=== PATIENT | male | born 1975 | race Caucasian/White ===

== ENCOUNTER 2017-05-10 06:02 | Emergency (ER) | payer BC ==
[~2017-05-10] VITALS: Ht 165.1 cm; Wt 118.2 kg
[~2017-05-10 06:02] MED LIST: ASPI-664 PO; CEPH-443 PO; GLIP-95 PO; HYDR-762 PO; HYDR-906 PO; IBUP800T25 PO; LEVO175T38 PO; LISI-313 PO; METF500T4 PO; ONDA4TAB35 PO; SIMV10TA PO; SULF1TAB31 PO
[2017-05-10 06:09] VITALS: Ht 165.1 cm; Wt 118.2 kg
--- NOTE | 2017-05-10 06:57 | ERD ---
ER Documentation Chief Complaint Date/Time DATE: 05/10/17 TIME: 06:55 Chief Complaint ABSCESS TO LT GROIN X 2 DAYS. DENIES FEVER HPI 42-year-old male presents emergency department for abscess at the bottom of my testicles/groin area for 2 days. Also complains of testicular pain. No painful urination. Denies headache, loss of consciousness, dizziness, blurry vision, changes in vision, photophobia, facial pain, ear pain, throat pain, difficulty swallowing, neck pain, shoulder pain, chest pain, cough, hemoptysis, abdominal pain, back pain, loss of appetite, nausea, vomiting, hematochezia, diarrhea, constipation, urinary symptoms, bladder and bowel incontinences, extremity weakness, extremity tenderness, numbness or tingling sensation, difficulty walking, recent travel, recent exposure to illness, recent antibiotic use in the last 3 months, fever, chills. Past medical history of diabetes, hypertension, hypothyroidism. No surgical history. Medication: Metformin, glipizide, aspirin, levothyroxine. Social: nutrition worker. Denies smoking, use of alcohol, use of illegal drugs. ROS All systems reviewed and are negative except as per history of present illness. Medications Home Meds Active Scripts Ibuprofen* (Motrin*) 800 Mg Tab, 800 MG PO Q8 Y for PAIN AND OR ELEVATED TEMP, # 30 TAB Prov:PASILABANZACKAR F 05/10/17 Hydrocodone/Acetaminophen ([place] 5-325 Tablet) 1 Each Tablet, 1 TAB PO Q6H Y for PAIN, #15 TAB Prov:PASILABAN,ZACKAR F 05/10/17 Cephalexin* (Keflex*) 500 Mg Capsule, 500 MG PO QID for 5 Days, CAP Prov:PASILABAN,ZACKAR F 05/10/17 Sulfamethoxazole/Trimethoprim* (Bactrim Ds* Tablet) 1 Each Tablet, 1 TAB PO BID for 7 Days, #14 TAB Prov:PASILABAN,ZACKAR F 05/10/17 Hydrocodone/Acetaminophen ([place] 5-325 Tablet) 1 Each Tablet, 1 TAB PO Q6H Y for PAIN, #7 TAB Prov:LIZETH LIZARRAGA PA-C 04/20/17 Cephalexin* (Keflex*) 500 Mg Capsule, 500 MG PO QID for 5 Days, CAP Prov:LIZETH LIZARRAGA PA-C 04/20/17 Sulfamethoxazole/Trimethoprim* (Bactrim Ds* Tablet) 1 Each Tablet, 1 TAB PO BID , #14 TAB Prov:LIZETH LIZARRAGA PA-C 04/20/17 Hydrocodone/Acetaminophen ([place] 5-325 Tablet) 1 Each Tablet, 1 TAB PO Q6H Y for PAIN, #12 TAB Prov:HAN KAPADIA PA-C 10/23/16 Ibuprofen* (Motrin*) 800 Mg Tab, 800 MG PO Q6H Y for PAIN AND OR ELEVATED TEMP, #30 TAB Prov:FABIANA MONTIEL MD 03/20/16 Ondansetron Hcl* (Zofran* ODT) 4 mg -ODT Tab.disper, 4 MG PO Q6 Y for NAUSEA AND /OR VOMITING, #30 TAB Prov:FABIANA MONTIEL MD 03/20/16 Hydrocodone Bit-Acetaminophen* ([place]*) 10-325 Mg Tablet, 1 TAB PO Q6 Y for PAIN , #12 TAB Prov:FABIANA MONTIEL MD 03/20/16 Reported Medications Simvastatin* (Zocor*) 10 Mg Tablet, 10 MG PO QHS, #30 TAB 03/20/16 Lisinopril* (Lisinopril*) 5 Mg Tablet, 5 MG PO DAILY, #30 TAB 03/20/16 Glipizide* (Glipizide*) 10 Mg Tablet, 10 MG PO AC MEALS, TAB 03/20/16 Aspirin (Low Dose Aspirin) 81 Mg Tablet.dr, 81 MG PO DAILY, #30 TAB 03/20/16 Levothyroxine Sodium* (Levoxyl*) 175 Mcg Tablet, 175 MCG PO BEFORE BREAKFAST, # 30 TAB 03/20/16 Metformin Hcl* (Metformin Hcl*) 500 Mg Tablet, 500 MG PO WITH BREAKFAST Y for BID, TAB 09/19/15 Allergies Allergies: Coded Allergies: No Known Allergy (Unverified , 05/10/17) PMhx/Soc History of Surgery: No Anesthesia Reaction: No Hx Neurological Disorder: No Hx Respiratory Disorders: No Hx Cardiac Disorders: No Hx Psychiatric Problems: No Hx Miscellaneous Medical Probl: Yes (dm, hypothyroid) Hx Alcohol Use: Yes (occasional) Hx Substance Use: No Hx Tobacco Use: No Smoking Status: Never smoker Physical Exam Vitals Vital Signs Date Time Temp Pulse Resp B/P Pulse Ox O2 Delivery O2 Flow Rate FiO2 05/10/17 06:09 97.0 101 22 137/86 95 Physical Exam CONSTITUTIONAL: Well-appearing; well-nourished; in no apparent distress. HEAD: Normocephalic; atraumatic. EYES: Conjunctiva clear, sclera non-icteric, EOM intact. PERRL Ears: Hearing intact. EACs clear, TMs non-bulging, non-inflamed, translucent & mobile, ossicles normal appearance, No obstructions, no erythema, no discharges Nose: No obstructions. No polyps. No external lesions. Mucosa non-inflamed. No external lesions, septum and turbinates normal. No rhinorrhea. No discharges. Frontal sinus is non-tender to palpation. Maxillary sinus is non-tender to palpation. MOUTH: Moist mucous membranes, no lesion, no obstructions, no vesicles, no thrush, patent airway Throat: Uvula in midline. Right tonsil is +1 with no erythema, no exudate. Left tonsil is +1 with no erythema, no exudate. Tolerating secretions well. Good gag reflex. Patent airway. Neck: Supple, without lesions, bruits, or adenopathy. No mass. Thyroid non- enlarged and non-tender to palpation. CHEST: Symmetrical chest. Respirations even and not labored. No retractions noted. CARDIOVASCULAR: Normal S1, S2. RRR. No murmurs, gallops. RESPIRATORY: Normal chest excursion with respiration; breath sounds clear and equal bilaterally; no wheezes, rhonchi, or rales. Breathing even and unlabored. Speaking in clear, full, and complete sentences w/ ease. ABDOMEN: Normal bowel sounds normal. Soft, round, non-distended, non-guarding, no tenderness, no rebound, no organomegaly, no masses, no pulsating abdominal mass. No hernia. No peritoneal signs. : No CVA tenderness. External genital area is no lesions, rashes, hives, vesicular lesions with normal hair growth. Bilateral testicular area has no obvious discoloration/swelling. Inferior part of his testicle has mild swelling measuring about 2 x 2 centimeter in diameter. No induration. BACK: Symmetrical shoulder. Spine is midline without deformity, tenderness. No evidence of trauma or deformity. PELVIS: Stable pelvis. No evidence of trauma or deformity. MUSCULOSKELETAL: Normal gait and station. No misalignment, asymmetry, crepitation, defects, tenderness, masses, effusions, decreased range of motion, instability, atrophy or abnormal strength or tone in the head, neck, spine, ribs , pelvis or extremities. No calf tenderness. NEUROVASCULAR: Distal pulses are present. Pedal pulse are present, equal, and normal. Capillary refills are < 2 seconds. NEUROLOGIC: Alert and oriented x4. Speaks full and clear sentences. Cranial Nerves II-XII normal. Sensation to pain, touch, and proprioception normal. Grossly unremarkable. No neurologic deficits. Romberg test is negative. PSYCHOLOGICAL: The patients mood and manner are appropriate. No hallucinations , delusions. Not SI. Not HI. Has the capacity to decide for self SKIN: Normal for age and ethnicity; warm; dry; good turgor; no apparent lesions or exudates. No rashes, hives, discoloration. Intact. Results 24 hrs Laboratory Tests Test 05/10/17 08:46 Urine Color STRAW Urine Clarity CLEAR Urine pH 6.0 Urine Specific [place] 1.031 Urine Ketones 1+mg/dL Urine Nitrite NEGATIVEmg/dL Urine Bilirubin NEGATIVEmg/dL Urine Urobilinogen NEGATIVEmg/dL Urine Leukocyte Esterase NEGATIVELeu/ul Urine Hemoglobin NEGATIVEmg/dL Urine Glucose 3+mg/dL Urine Total Protein NEGATIVEmg/dl Current Medications Medications (Trade) Dose Ordered Sig/Deep Route PRN Reason Start Time Stop Time Status Last Admin Dose Admin Ceftriaxone Sodium (Rocephin) 1 gm ONCE ONCE IM 05/10/17 07:00 05/10/17 07:01 DC 05/10/17 07:12 Acetaminophen/ Hydrocodone Bitart ([place] (10/325)) 1 tab ONCE ONCE PO 05/10/17 07:00 05/10/17 07:01 DC 05/10/17 07:12 Procedures/MDM Examination: Please see physical examination. Disease process, medical treatment was explained to the patient and family member. They verbalized understanding and agreed with the diagnostic tests, medical treatment, and follow-up care. Radiology: Testicular ultrasound Impression: Small bilateral hydroceles. 0.3 cm left epididymal cyst. A small left varicocele is present. Normal vascular flow to both testes and epididymides. Treatment: Ceftriaxone IM. [place]. Motrin. Re-evaluation: Denies headache, dizziness, blurry vision, neck pain, shoulder pain, chest pain, back pain, abdominal pain, nausea, vomiting. No episode of emesis in the emergency department. Alert and oriented 4. Speaks full and clear sentences. Respirations even and unlabored. Lung sounds clear to auscultation. Active bowel sounds. There is no right upper/right lower/ epigastric/left upper/left lower abdominal tenderness and light and deep palpation. Negative on Rovsings sign. Negative Hunt sign. Able to jump 5 times without developing right-sided abdominal pain. No peritoneal signs. Alert and oriented 4. Speaks full and clear sentences. Respirations even and unlabored. Lung sounds clear to auscultation. Ambulatory with steady gait. No neurovascular deficits. No neurological deficits. Consultation: None. Differential diagnosis: Testicular torsion versus epididymal cysts versus epididymitis Medical decision makin-year-old male presents emergency department for abscess at the bottom of my testicles/groin area for 2 days. Also complains of testicular pain. No painful urination. Patient's complaint, patient's history about his complaint, my physical findings, diagnostic test results, my reevaluation are consistent my final diagnosis of epididymitis. Patient stated that he wants to go home and follow-up with his primary care physician in the next 24-48 hours. Hemodynamically stable on discharge. Medications prescribed are the following: Bactrim. Keflex. [place]. Patient and family member are made aware of the side effects and adverse reactions of the medications prescribed. Instructed on when to seek emergent and medical attention in case allergic/anaphylactic reactions or severe side effects and or adverse reactions to medications. Patient and family member verbalized understanding. Patient instructed Instructed to follow-up with his PCP in 24-48 hours. Stated that he will make sure to see a primary care physician the next 24 hours. Instructed to Call 911 for chest pain, shortness of breath. Advised to come back here in ED as soon as possible for severity of symptoms which includes but not limited to: any new symptoms; shortness of breath/difficulty of breathing; cardiovascular changes; severe gastrointestinal symptoms; signs and symptoms of bleeding and or infection; signs of compartment syndrome/neurovascular changes; neurological changes/deficits. Patient and family member verbalized understanding. Upon discharge, patient is alert and oriented x 4, speaks full and clear sentences, denies pain, has no neurological deficits, has no neurovascular deficits, difficulty of breathing. Breathing even and unlabored. Lung sounds are clear to auscultation. Not in distress. Appears comfortable. Ambulatory with steady gait. Appears satisfied with care provided here in ED. Departure Diagnosis: Primary Impression: Epididymal cyst Additional Impression: Epididymal pain Condition: Good Additional Instructions: Instructed to follow-up with his PCP in 24-48 hours. Stated that he will make sure to see a primary care physician the next 24 hours. Instructed to Call 911 for chest pain, shortness of breath. Advised to come back here in ED as soon as possible for severity of symptoms which includes but not limited to: any new symptoms; shortness of breath/difficulty of breathing; cardiovascular changes; severe gastrointestinal symptoms; signs and symptoms of bleeding and or infection; signs of compartment syndrome/neurovascular changes; neurological changes/deficits. Patient and family member verbalized understanding. JOSSUE GUPTA May 10, 2017 06:57
[2017-05-10] MEDS ORDERED: CEFTRIAXONE 1 GM INJ IM ONE (07:00)
[2017-05-10] MEDS ORDERED: HYDROCODONE/APAP (10/325) TAB PO ONE (07:00)
--- NOTE | 2017-05-10 08:29 | RADRPT ---
PROCEDURE: US Scrotum. CLINICAL INDICATION: scrotal pain TECHNIQUE: Multiple sonographic images of the scrotal region were obtained utilizing a linear arra y transducer with grayscale and color-flow and a Doppler imaging. The images were reviewed on a high -resolution PACS workstation. COMPARISON: No prior studies are available for comparison. FINDINGS: The right testicle is well visualized and has a normal echotexture. No focal areas of abnormal echog enicity are visualized. The right testicle measures 5.1 x 2.3 x 2.8 cm. There is normal color-flow. The right epididymis is visualized and unremarkable in appearance. There is normal color-flow. The left testicle is well visualized and has a normal echotexture. No focal areas abnormal echogenic ity are visualized. The left testicle measures 4.6 x 2.1 x 3.2 cm. There is normal color-flow. A lef t epididymal cyst is present measuring 0.3 cm in diameter. Small bilateral hydroceles are present. There is a mild left varicocele. IMPRESSION: 1. Small bilateral hydroceles. 2. 0.3 cm left epididymal cyst. 3. A small left varicocele is present. 4. Normal vascular flow to both testes and epididymi. RPTAT:AAJJ Physician Cain Date Time Electronically viewed and signed by Physician Cain on 05/10/2017 08:29 /
[2017-05-10] MEDS ORDERED: CEPH-443 PO (08:43)
[2017-05-10] MEDS ORDERED: SULF1TAB31 PO (08:43)
[2017-05-10] MEDS ORDERED: IBUP800T25 PO (08:45)
[2017-05-10] MEDS ORDERED: HYDR-906 PO (08:45)
[2017-05-10 09:06] LABS: ADD UMIC NO; UR ASCORBIC ACID NEGATIVE (NEGATIVE); UR BILIRUBIN (Dip) NEGATIVE (NEGATIVE); UR BLOOD (Dip) NEGATIVE (NEGATIVE); UR CLARITY CLEAR (CLEAR); UR COLOR STRAW (YELLOW); UR GLUCOSE (Dip) 3+ mg/dL (NEGATIVE); UR KETONES (Dip) 1+ mg/dL (NEGATIVE); UR LEUKOCYTE ESTERASE (Dip) NEGATIVE Leu/ul (NEGATIVE); UR NITRITE (Dip) NEGATIVE (NEGATIVE); UR SPECIFIC GRAVITY (Dip) 1.031 (1.003-1.030); UR TOTAL PROTEIN (Dip) NEGATIVE (NEGATIVE); UR UROBILINOGEN (Dip) NEGATIVE (NEGATIVE)
== END 2017-05-10 09:01 | disposition home or self-care (01) ==
LOC: FTE 06:02
DX: N50.3 Cyst of epididymis (principal); E11.9 Type 2 diabetes mellitus without complications; I10 Essential (primary) hypertension; E03.9 Hypothyroidism, unspecified; Z79.82 Long term (current) use of aspirin; Z79.84 Long term (current) use of oral hypoglycemic drugs
CPT/HCPCS: 76870; 81003; 87086; 96372; 99285; J0696; Z7610